=== PATIENT | female | born 1995 | race Caucasian/White ===

== ENCOUNTER 2019-04-04 09:20 | Emergency (ER) | payer BC, OTHER ==
[~2019-04-04] VITALS: Ht 165 cm; Wt 61.7 kg
[2019-04-04] MEDS ORDERED: ONDANSETRON 4 MG (ZOFRAN) ORAL DISSOLVE TAB PO STA (10:02)
--- NOTE | 2019-04-04 10:14 | ED Abdominal Pain ---
General Chief Complaint: Abdominal/GI Problems Stated Complaint: VOMITING Source of Information: Patient History of Present Illness Date Seen by Provider: Apr 04, 2019 Time Seen by Provider: 10:00 Initial Comments Patient is a 23-year-old female who presents with nausea vomiting and diarrhea. Symptom onset was yesterday. Patient reports migratory abdominal cramping. Last vomited this morning at 3:30 AM. No fevers chills, sweats, flank pain. No urinary frequency urgency or burning. Currently on menstrual period. No prior abdominal surgeries. Timing/Duration: 24 Hours Severity/Quality: Moderate Location: Generalized Abdomen Radiation: No Radiation Activities at Onset: None Associated Symptoms: Denies Symptoms Allergies and Home Medications Allergies Coded Allergies: No Known Drug Allergies (Unverified , 04/04/19) Patient Home Medication List Home Medication List Reviewed: Yes Review of Systems Review of Systems Constitutional: see HPI EENTM: See HPI Respiratory: See HPI Cardiovascular: See HPI Gastrointestinal: See HPI Genitourinary: See HPI Musculoskeletal: see HPI Skin: see HPI Psychiatric/Neurological: See HPI Endocrine: See HPI Hematologic/Lymphatic: See HPI Past Xfzrsyk-Rzviwd-Wovmpy Hx Past Med/Social Hx: Reviewed Nursing Past Med/Soc Hx Physical Exam Vital Signs Capillary Refill : Height/Weight/BMI Height: '" Weight: lbs. oz. kg; BMI Method: General Appearance: WD/WN, no apparent distress HEENT: PERRL/EOMI, normal ENT inspection, pharynx normal Neck: non-tender, full range of motion, supple Respiratory: chest non-tender, lungs clear, no respiratory distress Cardiovascular: normal peripheral pulses Gastrointestinal: soft, abnormal bowel sounds, distended Extremities: normal range of motion, non-tender Back: normal inspection, no CVA tenderness Neurologic/Psychiatric: drawer maker II-XII nml as tested, no motor/sensory deficits, alert, oriented x 3 Progress/Results/Core Measures Results/Orders My Orders Orders - MELISSA FREED DO Famotidine Tablet (Pepcid Tablet) (04/04/19 10:15) Ondansetron Oral Dissolve Tab (Zofran (04/04/19 10:02) Departure Communication (Admissions) Abdomen is soft non-surgical. Symptoms consistent with GI illness prevalent in the community. Recommend supportive care watchful waiting and PCP follow-up. Return precautions reviewed. Patient verbalizes understanding and agreement discharge instructions prior to departure. Impression Primary Impression: Abdominal pain Additional Impressions: Diarrhea Nausea and vomiting Disposition: 01 HOME, SELF-CARE Condition: Improved Departure-Patient Inst. Referrals: NO,LOCAL PHYSICIAN (PCP/Family) Primary Care Physician Patient Instructions: Acute Abdomen (Belly Pain), Adult (DC) Add. Discharge Instructions: Please go home and rest. Take newly prescribed medications as directed and drink clear liquids only for the next 6-12 hours and then gradually advance to a bland diet as tolerated. Follow up with your PCP in 2-3 days and return to the ED if new or worsening symptoms. All discharge instructions reviewed with patient and/or family. Voiced understanding. Scripts Famotidine (Pepcid) 20 Mg Tablet 20 MG PO Q12H, #10 TAB Prov: MELISSA FREED DO 04/04/19 Ondansetron (Ondansetron Odt) 4 Mg Tab.rapdis 4 MG PO Q8H, #10 TAB Prov: MELISSA FREED DO 04/04/19 MELISSA FREED DO Apr 04, 2019 10:14
[2019-04-04] MEDS ORDERED: FAMOTIDINE 20 MG (PEPCID) TABLET PO ONE (10:15)
[2019-04-04] MEDS ORDERED: ONDA4TAB11 PO (10:18)
[2019-04-04] MEDS ORDERED: FAMO-119 PO (10:18)
[2019-04-04 10:40] VITALS: BP 128/77
--- OUTSIDE RECORDS SUMMARY | 2019-04-27 14:27 | XMS REPORT | Continuity of Care Document ---
Author Organization Unknown POS Address Unknown SP Phone Unavailable SP Allergies Active Description Code Type Severity POS Reaction Onset Reported/Identified POS to Patient Clinical Status POS Yes No Known Drug Allergies [id number] Drug SP Unknown N/A 04/04/2019 SP SP Medications There is no data. Problems Date Dx Coded Attending Type Code POS Diagnosed By POS 04/04/2019 ABDIAZIZ GUPTA, MELISSA Ot R10.84 SP ABDOMINAL PAIN SP 04/04/2019 ABDIAZIZ GUPTA, MELISSA Ot R11.2 NAUSEA SPWITH VOMITING, UNSPECIFIED SP 04/04/2019 BRIGHTON , MELISSA Ot R19.7 SP UNSPECIFIED SP 04/07/2019 BRIGHTON , MELISSA Ot R10.84 SP ABDOMINAL PAIN SP 04/07/2019 [facility], MELISSA Ot R11.2 NAUSEA SPWITH VOMITING, UNSPECIFIED SP 04/07/2019 [facility], MELISSA Ot R19.7 SP UNSPECIFIED SP Procedures There is no data. Results Test Result Range POS CULTURE, URINE - 01/05/19 15:27 POS CULTURE, URINE, ROUTINE NRG SP Encounters ACCT No. Visit Date/Time Discharge Status POS Pt. Type Provider Facility Loc./Un it POS Complaint POS [id number] 12/31/2018 11:00:00 12/31/2018 23:59: 59 CLS SP Outpatient [facility] SP SP [id number] 04/04/2019 09:23:00 019 10:40:00 SP DIS Emergency MELISSA FREED [place] [id number] 01/05/2019 14:40:00 01/05/2019 23:59:5 9 CLS SP Outpatient [facility] SP SP [id number] 01/05/2019 14:40:00 Document SPRegistration SP
--- OUTSIDE RECORDS SUMMARY | 2019-04-27 14:27 | XMS REPORT ---
Author Author Ashlee Holley POS Organization [facility] SP Address [address] [place] [address] SP Care Team Providers Care Landscape Architect And Planner Name Role Phone POS Ashlee Holley Unavailable SP PROBLEMS Unknown Problems ALLERGIES No Known Allergies ENCOUNTERS Encounter Location Date Diagnosis POS [facility] [place] [address] [id number] [id number] Dec, SP Nausea R11.0 ; Diarrhea, unspecified R19 .7 and Vomiting, unspecified R11.10 SP IMMUNIZATIONS No Known Immunizations SOCIAL HISTORY Never Assessed REASON FOR VISIT Nausea vomiting PLAN OF CARE Activity Details POS SP Follow Up PRN/ Establish care w/ PCP R yunior: SP VITAL SIGNS Height 65 in 2018-12-31 POS Weight 132.8 lbs 2018-12-31 POS Temperature 98.0 degrees Fahrenheit 2018-12-31 POS BMI 22.10 kg/m2 2018-12-31 POS Oximetry 96 2018-12-31 POS Blood pressure systolic 110 mm Hg 2018-12-31 POS Blood pressure diastolic 72 mm Hg 2018-12-31 POS MEDICATIONS Medication Instructions Dosage Frequency Start Date End Date Duration S tatus POS Ondansetron HCl 4 MG Orally Twice a day if needed 1 tablet 7 days Active SP RESULTS Name Result Date Reference Range POS Test, Urine (waived) (Range:positive/negative) 2018-12-31 SP Test, Urine negative SP PROCEDURES Procedure Date Ordered Result Body Site POS TEST December 31, 2018 SP INSTRUCTIONS MEDICATIONS ADMINISTERED No Known Medications MEDICAL (GENERAL) HISTORY Type Description Date POS Medical History depression SP Hospitalization History child 2018 SP
== END 2019-04-04 10:40 | disposition home or self-care (01) ==
LOC: ER FS 09:23
DX: R10.84 Generalized abdominal pain (principal); R19.7 Diarrhea, unspecified; R11.2 Nausea with vomiting, unspecified
CPT/HCPCS: 99283